=== PATIENT | female | born 1960 | race Caucasian/White ===

== ENCOUNTER 2020-11-29 14:59 | Emergency (ER) | payer BC ==
[~2020-11-29] VITALS: Ht 157.5 cm; Wt 95.3 kg
[~2020-11-29 14:59] MED LIST: BACTROBAN OINT22 GM EXT
[2020-11-29 17:21] LABS: HEMOGLOBIN 14.4 gm/dl (12.3-15.3); RED BLOOD COUNT 4.97 M/UL (4.00-5.10); WHITE BLOOD COUNT 2.3 K/UL (4.5-11.0)
[2020-11-29 17:40] LABS: BUN/CREATININE RATIO 17 (0-10)
[2020-11-29] MEDS ORDERED: ZITHROMAX500 MG PO (19:38)
== END 2020-11-29 19:19 | disposition home or self-care (01) ==
LOC: ER1 14:59
PROVIDERS: Preventive Medicine Occupational Medicine
DX: U07.1 COVID-19 (principal); J12.82 Pneumonia due to coronavirus disease 2019; I10 Essential (primary) hypertension; E66.9 Obesity, unspecified
CPT/HCPCS: 71045; 80053; 85025; 99284; J7030; M0239

== ENCOUNTER → 2021-04-03 | Outpatient (CLI) | payer BC ==
[~2021-04-03] MED LIST changes: +ZITHROMAX500 MG PO
== END ==
LOC: RAD 17:12
DX: M25.511 Pain in right shoulder (principal); M54.12 Radiculopathy, cervical region; M54.16 Radiculopathy, lumbar region; M47.812 Spondylosis without myelopathy or radiculopathy, cervical region; M19.011 Primary osteoarthritis, right shoulder; M47.816 Spondylosis without myelopathy or radiculopathy, lumbar region
CPT/HCPCS: 72050; 72110; 73030